=== PATIENT | female | born 1950 | race Caucasian/White ===

== ENCOUNTER 2016-11-19 06:13 | Emergency (ER) | payer OTHER ==
[~2016-11-19] VITALS: Ht 160 cm; Wt 72.6 kg
[2016-11-19 06:58] LABS: PLATELET COUNT 223 x10^3mcL (130-400)
[2016-11-19 07:18] VITALS: BP 85/57
[2016-11-19 07:20] LABS: BAND NEUTROPHIL 5 % (0-10); MONOCYTE 4 % (0-7); MYELOCYTE 1 % (0-2); SEGMENTED NEUTROPHILS 76 % (37-75); ovalocyte/elliptocyte 1+; rbc morphology (normal/abnorm) ABNORMAL (NORMAL)
[2016-11-19 07:21] LABS: target cell (codocyte) 2+
[2016-11-19 07:45] VITALS: BP 132/93
[2016-11-19 08:07] LABS: ALKALINE PHOSPHATASE 794 U/L (46-116); ALT/SGPT 150 U/L (14-59); AMYLASE 78 U/L (25-115); AST/SGOT 734 U/L (15-37); BILIRUBIN TOTAL 5.4 mg/dL (0.20-1.00); CALCIUM 9.1 mg/dL (8.5-10.1); CHLORIDE SERUM 106 mmol/L (98-107); CREATININE SERUM 1.7 mg/dL (0.6-1.0); GFR1 32 mL/min; GLUCOSE SERUM 71 mg/dL (74-106); LIPASE 40 IU/L (73-393); MAGNESIUM 2.4 mg/dL (1.8-2.4); POTASSIUM SERUM 4.3 mmol/L (3.5-5.1); SODIUM SERUM 143 mmol/L (136-145)
[2016-11-19 08:12] LABS: ALBUMIN 1.4 g/dL (3.4-5.0); CARBON DIOXIDE 11.1 mmol/L (21-32); CHOLESTEROL 123 mg/dL (<200); HDL CHOLESTEROL 6 mg/dL (40-60); T4(THYROXINE) 3.1 ug/dL (4.7-13.3); TOTAL PROTEIN, SERUM 5.5 g/dL (6.4-8.2)
[2016-11-19 08:54] VITALS: BP 39/26
== END 2016-11-19 06:16 | disposition expired ==
LOC: ED 06:13
PROVIDERS: Emergency Medicine
DX: I46.9 Cardiac arrest, cause unspecified (principal); C22.0 Liver cell carcinoma; C79.81 Secondary malignant neoplasm of breast; I26.99 Other pulmonary embolism without acute cor pulmonale; E88.09 Other disorders of plasma-protein metabolism, not elsewhere classified; D64.9 Anemia, unspecified; I21.4 Non-ST elevation (NSTEMI) myocardial infarction; K72.90 Hepatic failure, unspecified without coma; I60.8 Other nontraumatic subarachnoid hemorrhage; I62.00 Nontraumatic subdural hemorrhage, unspecified; I45.2 Bifascicular block; Z79.01 Long term (current) use of anticoagulants
CPT/HCPCS: 82962; 83880; G0480; J1100; J2543; J3490; J7030; Q0092